=== PATIENT | male | born 2000 | race Caucasian/White ===

== ENCOUNTER 2020-10-01 17:27 | Emergency (ER) | payer BC ==
[~2020-10-01] VITALS: Ht 172.7 cm; Wt 127.2 kg
[2020-10-01] MEDS ORDERED: PERTUSS(ACELL),DIPH,TET VAC/PF 0.5 ML VIAL IM ONE (18:30)
[2020-10-01 20:20] VITALS: BP 124/75
== END 2020-10-01 20:34 | disposition home or self-care (01) ==
LOC: EMS 17:29
DX: S81.812A Laceration without foreign body, left lower leg, initial encounter (principal); W10.9XXA Fall (on) (from) unspecified stairs and steps, initial encounter; Y93.01 Activity, walking, marching and hiking; Y92.89 Other specified places as the place of occurrence of the external cause; Y99.8 Other external cause status
CPT/HCPCS: 12001; 90471; 90715; 99283